=== PATIENT | female | born 1965 | race Caucasian/White ===

== ENCOUNTER 2019-06-03 18:35 | Emergency (ER) | payer BC ==
--- OUTSIDE RECORDS SUMMARY | 2019-06-03 19:46 | XMS REPORT | Continuity of Care Document ---
:1965 External Reference #:[id number] Author Name XIOMARA Srinivasan (transmitted by agent of provider Vanda Sanchez) Address [address] [place] [address] Care Team Providers Name Role Phone Dave Bradley MD - Internal Medicine Care Team Information Medical Physics Teacher [phone] Kiara Peralta PA - Physician Export Agent Care Team Information Medical Physics Teacher [phone] Problems Inactive Problems Provider Date Herpes zoster XIOMARA Srinivasan Onset: 05/05/2019 Inactive: 05/05/2019 Social History Type Date Description Comments Sex Unknown ETOH Use Rarely consumes alcohol Tobacco Use Start: Unknown Patient is a current smoker, smokes every day Recreational Drug Use Never Used Drugs Tobacco Use Reviewed: 01/21/17 Light tobacco smoker (10 or fewer cigarettes/day) Smoking Status Reviewed: 01/21/17 Light tobacco smoker (10 or fewer cigarettes/day) Exercise Type/Frequency Does not exercise Tattoo/Piercing Negative For Tattoo Allergies, Adverse Reactions, Alerts Description No Known Drug Allergies Medications Description No Active Medications Immunizations CPT Code Status Date Vaccine Lot # [id number] Given 05/06/2011 Tdap - Tetanus/Diptheria/Acellular Pertussis Vital Signs Date Vital Result Comment 05/05/2019 3:33pm Height 62 inches 5'2" Weight 177.31 lb BP Systolic Sitting 122 mmHg BP Diastolic Sitting 60 mmHg Respiratory Rate 12 /min Body Temperature 98.9 F BMI (Body Mass Index) 32.4 kg/m2 03/08/2018 3:33pm Height 62 inches Weight 177.00 lb BP Systolic 130 mmHg BP Diastolic 70 mmHg Respiratory Rate 12 /min Body Temperature 98.8 F BMI (Body Mass Index) 32.4 kg/m2 Results Description No Information Available Procedures Description No Information Available Medical Devices Description No Information Available Encounters Description No Information Available Assessments Date Code Description Provider 05/05/2019 Z00.00 Encounter for general adult medical examination XIOMARA Srinivasan without abnormal findings Plan of Treatment Future Appointment(s):05/07/2020 4:15 pm - XIOMARA Srinivasan at [facility] - Kiara Peralta, [id number] Encounter for general adult medical examination without abnormal findingsNew Labs:Basic Metabolic Panel, Ordered: 05/05/19CBC Auto Diff, Ordered: 05/05/19Liver Function Panel, Ordered: 05/05/19Lipid Profile (Trig/Chol/HDL), Ordered: 05/05/19AllNew Medication:No Active Medications - Functional Status Description No Information Available Mental Status Description No Information Available Referrals Description No Information Available
[2019-06-03 20:06] VITALS: BP 128/78
--- NOTE | 2019-06-03 20:16 | UC ---
Complaint Female HPI - HPI Summary HPI Summary: Per human geography faculty member: "pt states a few days ago she noticed a foul odor to her urine. Today she has been having urinry frequency and lower abdominal pressure. Denies noticing any blood in her urine or fever." -last UTI 16 yrs ago. has had kidney infection. pressure started tonight. -no f/c/ns. no blood. no rash - History Of Current Complaint Chief Complaint: [facility] Stated Complaint: URINARY Time Seen by Provider: 06/03/19 20:02 Hx Last Menstrual Period: 01/11/14 Pain Intensity: 2 - Allergies/Home Medications Allergies/Adverse Reactions: Allergies Allergy/AdvReac Type Severity Reaction Status Date / Time No Known Allergies Allergy Verified 06/03/19 20:07 PMH/Surg Hx/FS Hx/Imm Hx Previously Healthy: Yes - Surgical History Surgical History: Yes Surgery Procedure, Year, and Place: C section x 1, bunionectomy left foot - Family History Known Family History: Positive: Non-Contributory - Social History Alcohol Use: Rare Substance Use Type: None Smoking Status (MU): Heavy Every Day Tobacco Smoker Type: Cigarettes Amount Used/How Often: 1 pack day Length of Time of Smoking/Using Tobacco: since age 18 Review of Systems All Other Systems Reviewed And Are Negative: Yes Constitutional: Positive: Negative Skin: Positive: Negative. Negative: Rash Eyes: Positive: Negative ENT: Positive: Negative Respiratory: Positive: Negative Cardiovascular: Positive: Negative Gastrointestinal: Positive: Negative Genitourinary: Positive: Dysuria, Frequency, Urgency Motor: Positive: Negative Neurovascular: Positive: Negative Musculoskeletal: Positive: Negative Neurological: Positive: Negative Psychological: Positive: Negative Is Patient Immunocompromised?: No Physical Exam Triage Information Reviewed: Yes Appearance: Well-Appearing, No Pain Distress, Well-Nourished - very pleasant, good historian Vital Signs: Initial Vital Signs Temp 98.8 F 06/03/19 20:00 Pulse 87 06/03/19 20:00 Resp 16 06/03/19 20:00 BP 128/78 06/03/19 20:00 Pulse Ox 100 06/03/19 20:00 Vital Signs Reviewed: Yes Eye Exam: Normal ENT Exam: Normal ENT: Positive: Pharynx normal Neck exam: Normal Neck: Positive: Supple, Nontender, No Lymphadenopathy Respiratory Exam: Normal Respiratory: Positive: Lungs clear, Normal breath sounds, No respiratory distress, No accessory muscle use. Negative: Crackles, Rhonchi, Stridor, Wheezing Cardiovascular Exam: Normal Abdominal Exam: Normal Abdomen Description: Positive: Soft. Negative: CVA Tenderness (R), CVA Tenderness (L), Distended, Guarding, McBurney's Point Tenderness, Peritoneal Signs, Splenomegaly Musculoskeletal Exam: Normal Neurological Exam: Normal Psychological Exam: Normal Skin Exam: Normal Complaint Female Dx - Course Course Of Treatment: UA + nitrites -treat w/ keflex 500mgs tid x 7 d, 1st dose given here -watch for worsening sx as a sign resistance - Differential Dx/Diagnosis Differential Diagnosis/HQI/PQRI: Ureteral Stone, Urinary Tract Infection Provider Diagnosis: Urinary tract infection Discharge ED - Sign-Out/Discharge Documenting (check all that apply): Patient Departure All imaging exams completed and their final reports reviewed: No Studies - Discharge Plan Condition: Stable Disposition: HOME Prescriptions: Cephalexin CAP* [Keflex CAP*] 500 mg PO TID 7 Days #20 cap Patient Education Materials: Urinary Tract Infection in Women (ED) Referrals: Mehrdad Garcia MD [Primary Care Provider] - 2 Weeks Additional Instructions: It is recommended that you take a probiotic daily while you are on antibiotics. A few common brands that you can buy over the counter are colon health, align and florastor. These can help prevent a colon infection called c diff that can be associated with antibiotic use. - Billing Disposition and Condition Condition: STABLE Disposition: Home
[2019-06-03] MEDS ORDERED: Cephalexin CAP* 500 MG PO ONE (20:45)
== END 2019-06-03 20:55 | disposition home or self-care (01) ==
LOC: UCCORT 18:35
DX: N39.0 Urinary tract infection, site not specified (principal); Z87.440 Personal history of urinary (tract) infections; F17.210 Nicotine dependence, cigarettes, uncomplicated
CPT/HCPCS: 81003; 87077; 87086; 87186; 99202; A9270-GY; G0463